=== PATIENT | female | born 1955 | race Caucasian/White ===

== ENCOUNTER 2024-07-09 09:17 | Day surgery (SDC) | payer BC ==
[~2024-07-09 09:17] MED LIST: LIDOCAINE 1% (10MG/ML) FOR IV START INTRADERMA PRN
[2024-07-09 09:45] VITALS: RESP 16; TEMP 98.4
[2024-07-09] MEDS: LACTATED RINGERS 1,000 ML IV SCH (09:52)
[2024-07-09] MEDS: IV FLUID CONTINUATION 1,000 ML IV ONE (09:53)
[2024-07-09] MEDS ORDERED: PROPOFOL 10 MG/ML 20 ML VIAL IV ONE (09:55)
--- NOTE | 2024-07-09 10:01 | P.GSHP ---
History of Present Illness H&P Date: 07/09/24 Chief Complaint: Colon cancer screening 68-year-old female here for colonoscopy. Last colonoscopy 15 years ago. No bowel complaints. No family history of colon cancer. Past Medical History Past Medical History: Cancer, Deep Vein Thrombosis (DVT) Additional Past Medical History / Comment(s): hx. 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., hx breast cancer-had surgery & radiation in 2011, DVT leg after breast surg., osteopenia History of Any Multi-Drug Resistant Organisms: None Reported Past Surgical History: Breast Surgery Additional Past Surgical History / Comment(s): left nephrectomy & ureter removed, right breast lumpectomy, colonoscopy Past Anesthesia/Blood Transfusion Reactions: No Reported Reaction Smoking Status: Never smoker - Past Family History Father Family Medical History: Deep Vein Thrombosis (DVT) Medications and Allergies Home Medications Medication Instructions Recorded Confirmed Type Calcium Carbonate [Calcium] 600 mg PO DAILY 07/05/24 07/09/24 History Letrozole [Femara] 2.5 mg PO DAILY 07/05/24 07/09/24 History Risedronate Sodium [Actonel] 35 mg PO MO 07/05/24 07/09/24 History Allergies Allergy/AdvReac Type Severity Reaction Status Date / Time bee pollen Allergy Anaphylaxis Verified 07/09/24 09:37 Penicillins Allergy hives, Verified 07/09/24 09:37 throat tingling Surgical - Exam Vital Signs Temp Pulse Resp BP Pulse Ox 98.4 F 70 16 158/74 99 07/09/24 09:43 07/09/24 09:43 07/09/24 09:43 07/09/24 09:43 07/09/24 09:43 Physical exam: General: Well-developed, well-nourished HEENT: Normocephalic, sclerae nonicteric Abdomen: Nontender, nondistended Extremities: No edema Neuro: Alert and oriented Assessment and Plan (1) Colon cancer screening Narrative/Plan: Will proceed with colonoscopy at this time Current Visit: Yes Status: Acute Code(s): Z12.11 - ENCOUNTER FOR SCREENING FOR MALIGNANT NEOPLASM OF COLON SNOMED Code(s): 200703756
--- NOTE | 2024-07-09 10:14 | P.PCN ---
Date of Procedure: 07/09/24 Procedure(s) Performed: PREOPERATIVE DIAGNOSIS: Colon cancer screening POSTOPERATIVE DIAGNOSIS: Mild diverticulosis PROCEDURE: Colonoscopy ANESTHESIA: MAC SURGEON: Taz Jon M.D. SPECIMENS: None ENDOSCOPIC PROCEDURE: The patient was placed on the endoscopy table in the left decubitus position. The Olympus colonoscope was inserted into the anus and passed under direct visualization to the base of the cecum. The appendiceal orifice was visualized. From that point the scope was slowly withdrawn inspecting all surfaces carefully. There were no neoplastic inflammatory or polypoid lesions throughout the cecum, ascending, transverse, descending, sigmoid and rectum. There was mild left-sided diverticulosis noted. Digital rectal examination was normal. The patient was taken to the recovery room in stable condition per anesthesia guidelines. RECOMMENDATIONS: Resume diet. Repeat colonoscopy in 7 years.
[2024-07-09 10:35] VITALS: BP 131/85; PULSE 62
== END 2024-07-09 10:51 | disposition home or self-care (01) ==
LOC: ORWHC2ENDO 09:17
PROVIDERS: ATTEND Surgery
DX: Z12.11 Encounter for screening for malignant neoplasm of colon (principal); K57.30 Diverticulosis of large intestine without perforation or abscess without bleeding; M85.80 Other specified disorders of bone density and structure, unspecified site; Z79.811 Long term (current) use of aromatase inhibitors; Z85.3 Personal history of malignant neoplasm of breast; Z86.718 Personal history of other venous thrombosis and embolism; Z88.0 Allergy status to penicillin; Z91.030 Bee allergy status; Z79.899 Other long term (current) drug therapy